=== PATIENT | female | born 1955 | race Caucasian/White ===

== ENCOUNTER 2017-08-07 10:50 | Outpatient (CLI) | payer OTHER ==
--- NOTE | 2017-08-07 13:00 | RAD ---
THREE VIEWS OF THE RIGHT SHOULDER: 08/07/2017 HISTORY: Right shoulder pain. COMPARISON: None. FINDINGS: There is no widening of the AC or CC interspace. There is no displaced fracture or evidence of dislo cation seen. IMPRESSION: No acute findings. POS: [facility]
== END 2017-08-07 10:51 | disposition home or self-care (01) ==
LOC: SCSRAD 10:50
PROVIDERS: ATTEND Nurse Practitioner Family
DX: M25.511 Pain in right shoulder (principal)

== ENCOUNTER 2018-05-02 17:54 | Inpatient (IN) | payer OTHER ==
[2018-05-02 18:49] LABS: #Basophils 0.1 thou/uL (0.0-0.2); #Eosinphils 0.1 thou/uL (0.0-0.7); #Lymphocytes 1.4 thou/uL (1.20-3.40); #Neutrophils 11.5 thou/uL (1.40-6.50); %Basophils 0.6 % (0.0-1.0); %Eosinophils 0.4 % (0.0-10.0); %Monocytes 7.3 % (0.0-10.0); %Neutrophils 81.7 % (42.0-75.0); Hemoglobin 14.7 g/dL (12.0-16.0); Mean Corpuscular HGB CONC 32.9 g/dL (32.0-36.0); Mean Corpuscular Hemoglobin 30.3 pg (27.0-31.0); Mean Platelet Volume 8.6 fL (7.4-10.4); Platelet Count 243 thou/uL (130-400); RBC Distribution Width 13.1 % (11.5-14.5); Red Blood Cell (RBC) Count 4.85 mill/uL (4.20-5.40)
[2018-05-02] MEDS ORDERED: Ondansetron PF 4 MG/2 ML Vial ONE (18:51)
[2018-05-02] MEDS ORDERED: Morphine 4 MG/ML VIAL ONE (18:51)
[2018-05-02 18:58] LABS: Bilirubin Negative (Negative); Blood, Urine Negative (Negative); Clarity CLOUDY (Clear); Glucose, Urine (Dipstick) Negative (Negative); Leukocyte Trace (Negative); Nitrite Negative (Negative); Protein, Urine (Dipstick) Negative (Neg-Trace); Specific Gravity, Urine 1.028 (1.002-1.036); pH, Urine 6.5 (5.0-9.0)
[2018-05-02 19:00] LABS: Bacteria/HPF 2+ HPF (None Seen); Squamous Epithelial 21-50 HPF (0-3)
[2018-05-02 19:09] LABS: Hyaline Casts/LPF 0-3 HYALINE CAST LPF (0-3 Hyaline); Other Casts/LPF None Seen LPF (0-3 Hyaline); RBC/HPF 0-3 HPF (0-3)
[2018-05-02 19:13] LABS: Albumin 4.1 g/dL (3.4-4.8); Anion Gap 11 mmol/L (10-20); BUN (Urea Nitrogen) 15 mg/dL (9.8-20.1); Bilirubin, Total 0.9 mg/dL (0.2-1.2); Calc. Creatinine Clearance 0 mL/min (70-130); Calcium 9.6 mg/dL (7.8-10.44); Carbon Dioxide 28 mmol/L (23-31); Chloride 103 mmol/L (98-107); Estimated GFR-MDRD 70; Globulin 2.8 g/dL (2.4-3.5); Glucose 114 mg/dL (80-115); Potassium 3.5 mmol/L (3.5-5.1); Protein, Total 6.9 g/dL (6.0-8.3); Sodium 138 mmol/L (136-145)
[2018-05-02 19:14] LABS: ALT (SGPT) 14 U/L (8-55); AST (SGOT) 13 U/L (5-34); Alkaline Phosphatase 75 U/L (40-150); Lipase 11 U/L (8-78)
[2018-05-02 19:44] LABS: Bilirubin Small (Negative); Blood, Urine Negative (Negative); Clarity CLEAR (Clear); Glucose, Urine (Dipstick) Negative (Negative); Leukocyte Negative (Negative); Nitrite Negative (Negative); Protein, Urine (Dipstick) Negative (Neg-Trace); Specific Gravity, Urine 1.026 (1.002-1.036); pH, Urine 6.5 (5.0-9.0)
--- NOTE | 2018-05-02 20:26 | CT ---
ABDOMEN AND PELVIC CT SCAN WITH IV CONTRAST: History: 62-year-old female with history of hypertension with right lower quadrant pain, nausea and vomiting. FINDINGS: Mild linear stranding in the right middle lobe and lingula. No significant pleural fluid. Post-operat leatha changes of the stomach with a small hiatal hernia. Status post cholecystectomy. Fatty changes in the pancreas. Spleen, adrenal glands are unremarkable. No renal calculus or acute obstruction. Sca ttered diverticulosis throughout the colon with some focal wall thickening and pericolonic fat strand ing of the sigmoid colon which is somewhat tortuous. This area of diverticulitis is at the level of t he umbilicus. There is an umbilical or periumbilical fat containing hernia with some minimal associat ed fat stranding. No evidence for free intraperitoneal air or overt extraluminal gas. Calcified uteri ne fibroid. No CT evidence for acute appendicitis. No abscess or abnormal fluid collection. IMPRESSION: Focal sigmoid colon diverticulitis. Umbilical or periumbilical fat containing hernia with some associ ated fat stranding. Post op changes of the stomach and status post cholecystectomy. Mild linear stran ding in the right middle lobe and lingula, nonspecific. Calcification in the uterus, evidence for [place] rine fibroid. POS: [facility]
[2018-05-02] MEDS ORDERED: metroNIDAZOLE 500 MG/100 ML BAG ONE (20:33)
[2018-05-02] MEDS ORDERED: Acetaminophen 325 MG TAB PO PRN (21:07)
[2018-05-02] MEDS ORDERED: Ondansetron PF 4 MG/2 ML Vial IVP PRN (21:07)
[2018-05-02] MEDS ORDERED: Ondansetron ODT 4 MG TAB PO PRN (21:07)
[2018-05-02 22:41] VITALS: BMI 51.5
[2018-05-03] MEDS: Sodium Chloride 0.9% 1,000 ML IV SCH ×4 (00:27→16:18)
[2018-05-03] MEDS: metroNIDAZOLE 500 MG in Premix Bag 1 BAG IVPB SCH ×3 (04:22→20:18)
[2018-05-03 05:31] LABS: #Eosinphils 0.1 thou/uL (0.0-0.7); #Lymphocytes 1.5 thou/uL (1.20-3.40); #Monocytes 0.9 thou/uL (0.11-0.59); #Neutrophils 7.8 thou/uL (1.40-6.50); %Basophils 0.2 % (0.0-1.0); %Eosinophils 0.5 % (0.0-10.0); %Lymphocytes 14.9 % (21.0-51.0); %Monocytes 8.5 % (0.0-10.0); %Neutrophils 75.8 % (42.0-75.0); Hemoglobin 12.9 g/dL (12.0-16.0); Mean Corpuscular HGB CONC 32.8 g/dL (32.0-36.0); Mean Corpuscular Hemoglobin 30.5 pg (27.0-31.0); Mean Corpuscular Volume 92.8 fL (78.0-98.0); Platelet Count 218 thou/uL (130-400); RBC Distribution Width 12.9 % (11.5-14.5); Red Blood Cell (RBC) Count 4.23 mill/uL (4.20-5.40); White Blood Cell (WBC) Count 10.3 thou/uL (4.8-10.8)
[2018-05-03 05:46] LABS: Anion Gap 13 mmol/L (10-20); BUN (Urea Nitrogen) 11 mg/dL (9.8-20.1); Calc. Creatinine Clearance 159 mL/min (70-130); Calcium 8.6 mg/dL (7.8-10.44); Carbon Dioxide 23 mmol/L (23-31); Chloride 107 mmol/L (98-107); Estimated GFR-MDRD 80; Glucose 113 mg/dL (80-115); Potassium 4.3 mmol/L (3.5-5.1); Sodium 139 mmol/L (136-145)
--- NOTE | 2018-05-03 07:28 | HP ---
CHIEF COMPLAINT: Abdominal pain. HISTORY OF PRESENT ILLNESS: This is a 62-year-old female with past medical history of hypertension, presenting with abdominal pain, which started prior to the day of admission. The patient stated that the abdominal pain started at the lower quadrants bilaterally, and then, as it progressed and it became worse, pain started to localize at the right lower quadrant. The patient stated that she thought it was appendicitis. So, the patient went to primary care physician's office, concerned for appendicitis, and primary care physician advised the patient to come to the hospital to be evaluated. During the time when the patient was having the pain, the patient stated the pain was 10/10 in severity, and the patient had nausea, but the patient denied any vomiting. The patient states that her abdominal pain is not radiating and is sharp in nature. REVIEW OF SYSTEMS: Positive for abdominal pain, nausea, decreased appetite. Otherwise as documented in the HPI, all other systems were reviewed and are negative. PAST MEDICAL HISTORY: Hypertension. FAMILY HISTORY: Reviewed and noncontributory to this visit. PAST SURGICAL HISTORY: The patient had benign tumor removal; lap band in 2005, removed in 2007; gastric sleeve; cholecystectomy; tubal ligation. PSYCHIATRIC HISTORY: The patient has history of anxiety and depression. SOCIAL HISTORY: Denies alcohol use, denies illicit drug use, and denies any smoking history. ALLERGIES: THE PATIENT IS ALLERGIC TO CODEINE. CURRENT MEDICATIONS: The patient does not take any medications at this time. PHYSICAL EXAMINATION: VITAL SIGNS: Blood pressure is 130/94, pulse of 70, respiratory rate of 18, O2 saturation of 93% on room air. GENERAL: The patient is lying in bed, does not appear to be in any acute distress. The patient stated that she is well, able to speak in full sentences. Alert and oriented x3. HEENT: Normocephalic, atraumatic. Pupils are equally round and reactive to light. Extraocular movements are intact. No scleral icterus. No conjunctival pallor. Mucous membranes are moist. NECK: No JVD. Trachea is midline. Supple. Full range of motion. RESPIRATORY: Lungs are clear to auscultation bilaterally. No wheezing, no rales, no rhonchi are appreciated. CARDIAC: Positive S1 and S2. Regular rate and rhythm. No murmurs, no gallops, no rubs appreciated. ABDOMEN: Soft. Mild tenderness with palpation at the right lower quadrant. Positive rebound tenderness. Positive Rovsing sign. Positive psoas sign. No peritoneal signs. No Isaac sign. EXTREMITIES: The patient does have 5/5 upper extremity strength and 5/5 lower extremity strength. No edema noted at the upper and lower extremities. No deficits noted. The patient does have good pulses of the upper and lower extremities bilaterally. NEUROLOGIC: Cranial nerves 2 through 12 grossly intact. No neurologic deficit noted. SKIN: Warm, dry, and intact. PSYCHIATRIC: Normal affect. DIAGNOSTIC DATA: EKG shows sinus rhythm with a rate of 75. LABORATORY DATA: WBC is 14.0, hemoglobin is 14.7, and platelet is 243. Electrolytes; sodium is 138, potassium is 3.5, chloride is 103, carbon dioxide of 28, BUN is 15, creatinine is 0.83. Urinalysis is negative. IMAGING DATA: Showed CT of the abdomen and pelvis, showed focal sigmoid colon diverticulitis, umbilical or periumbilical fat-containing hernia with some associated fat stranding, postop changes of the stomach and status post cholecystectomy, mid linear stranding in the right middle lobe and lingular, nonspecific calcification in the uterus, evidence for your uterine fibroids. ASSESSMENT AND PLAN: This is a 62-year-old female being admitted for, 1. Abdominal pain secondary to acute diverticulitis. At this point, we have consulted Gastrointestinal. We are going to continue antibiotics. We will continue IV fluids. We will give the patient p.r.n. pain medications. We will give p.r.n. medications for fevers. 2. History of hypertension. We will control the patient's blood pressure accordingly. At this point, the patient's blood pressure is controlled. 3. Deep vein thrombosis and gastrointestinal prophylaxis. Job ID: [id number]
--- NOTE | 2018-05-03 08:47 | PRG ---
DATE OF SERVICE: 05/03/2018 SUBJECTIVE: The patient is seen and examined at bedside. She is doing significantly better. She would like to have her coffee this morning. The pain is almost completely gone. OBJECTIVE: VITAL SIGNS: Blood pressure is 131/83, temperature is 97.7, pulse is 74, respirations 16, and O2 saturation 100% on room air. HEENT: Head is atraumatic and normocephalic. She is obese. Her BMI is 51.6. Eyes are PERRLA. Sclerae are nonicteric. Oral mucosa is moist. NECK: Supple. No lymphadenopathy. LUNGS: Clear. HEART: S1 and S2 are normal. No S3. No S4. No murmur. ABDOMEN: Soft, mildly tender in the right lower quadrant. No guarding. No masses. EXTREMITIES: No clubbing, cyanosis, or edema. NEUROLOGICAL: She is alert and oriented x4. There is no any motor deficits. LABORATORY DATA: Normal CBC. Normal chemistry. IMPRESSION: 1. Acute diverticulitis. 2. Hypertension. 3. Morbid obesity. PLAN: We will start her on clear liquids and advance diet as tolerated. Continue antibiotics, which is Cipro and metronidazole. GI consult is still pending with and if she tolerates her food probably, she will be discharged in the next 24 hours. Job ID: [id number]
[2018-05-03] MEDS: Famotidine/PF 20 mg/2ml Vial SLOW IVP SCH ×2 (09:12→20:18)
[2018-05-03] MEDS: Famotidine 20 MG TAB PO SCH ×2 (09:14→20:18)
[2018-05-03] MEDS: Enoxaparin Sodium 40 MG/0.4 ML SYRINGE SC SCH (09:14)
[2018-05-03] MEDS ORDERED: Lisinopril/Hydrochlorothiazide 20 mg/12.5 mg Tablet PO SCH ×2 (10:00→21:00)
[2018-05-03] MEDS ORDERED: Lisinopril/Hydrochlorothiazide 20/25 mg Tablet PO SCH (10:15)
[2018-05-03] MEDS: Lisinopril/Hydrochlorothiazide 20/25 mg Tablet PO SCH (20:46)
[2018-05-04] MEDS: Sodium Chloride 0.9% 1,000 ML IV SCH (02:00)
--- NOTE | 2018-05-04 02:03 | CON ---
DATE OF CONSULTATION: 05/03/2018 REASON FOR CONSULTATION: Acute diverticulitis. CONSULTING PHYSICIAN: Dr. Jamir Zambrano. HISTORY OF PRESENT ILLNESS: The patient is a 62-year-old female with past medical history of hypertension, presenting with complaints of lower abdominal pain. The patient states that she was in her usual state of health until approximately 24 hours ago when she experienced the acute onset of lower abdominal pain affecting both the right and left lower quadrants. The pain was characterized as a pressure-type pain, nonradiating, constant, was progressively worsening throughout the day, and reached a severity of 7 to 8/10. Over the course of the day, the pain seemed to coalesce within the right lower quadrant and was made worse with increased physical activity, but better with bending over and administration of morphine on admission. With worsening of her abdominal pain, it prompted her to seek healthcare attention, where in the ER, she was given morphine which significantly reduced her pain, but she also had imaging findings consistent with acute diverticulitis. In addition to the increased lower abdominal pain that she was experiencing, she did have a mild increase in substernal chest pain that resolved completely with increased eructation. She also experienced subjective fevers without any chills and no documented fever either at home or on this admission. Otherwise, the patient denies any nausea, vomiting, fevers, chills, dysphagia, odynophagia, or weight loss. Currently, she has not had a bowel movement since the onset of her abdominal pain yesterday, but usually has approximately one solid or semi-solid bowel movement every day. Of note, her last colonoscopy was approximately 10 years ago with diverticulosis noted during that procedure, but no other abnormalities per the patient. REVIEW OF SYSTEMS: A 10-category review of systems was obtained with all responses negative except for the pertinent positives as listed in HPI. PAST MEDICAL HISTORY: Hypertension. PAST SURGICAL HISTORY: Laparoscopic band placement in 2005 and removed in 2007, gastric sleeve surgery, cholecystectomy, and bilateral tubal ligation. FAMILY HISTORY: Denies any GI malignancies. SOCIAL HISTORY: Denies any alcohol, tobacco, or illicit drug use. OUTPATIENT MEDICATIONS: None. ALLERGIES: CODEINE. PHYSICAL EXAMINATION: VITAL SIGNS: Temperature 98, pulse 67, blood pressure 146/91, respiratory rate 18, and saturating 96% on room air. GENERAL: The patient is sitting in a chair at bedside, in no acute distress. Alert and oriented x4. HEENT: Normocephalic, atraumatic. NECK: Supple. No JVD or scleral icterus noted. CARDIOVASCULAR: Regular rate and rhythm with no discernible murmurs, gallops, or rubs. RESPIRATORY: Clear to auscultation bilaterally with no discernible wheezes or rales. ABDOMEN: Hypoactive bowel sounds. Soft, nondistended, mild tenderness to palpation in the suprapubic and right lower quadrant as well as mild tenderness in the left lower quadrant. EXTREMITIES: No cyanosis, clubbing, or edema. LABORATORY DATA: CBC with a white blood cell count of 10.3, hemoglobin 12.9, hematocrit 39.3, and platelets 218. Chemistry with a sodium of 139, potassium 4.3, chloride 107, CO2 of 23, BUN 11, creatinine 0.74, and glucose 113. AST 13, ALT 14, alkaline phosphatase 75, total bilirubin 0.9. CRP 5.19, lipase 11. IMAGING DATA: CT of the abdomen and pelvis obtained on 05/02/2018 showed postoperative change in the stomach consistent with gastric sleeve surgery as well as a small hiatal hernia. Scattered diverticulosis was seen in sigmoid colon with focal wall thickening and fat stranding in the sigmoid colon consistent with diverticulitis. ASSESSMENT: The patient is a 62-year-old female with past medical history of hypertension, presenting with acute uncomplicated diverticulitis. Acute uncomplicated diverticulitis. The patient is presenting with the acute onset of lower abdominal quadrant abdominal pain characterized as a pressure-type pain that progressively worsened over the course of yesterday and reached a severity of 7/10. Upon evaluation in the [place] ER, she was noted to have a mildly elevated white blood cell count as well as imaging consistent with acute uncomplicated diverticulitis. At this point, the more likely diagnosis is sigmoid diverticulitis with referral to pain in the lower abdominal quadrants, although the increase in right lower quadrant abdominal pain is somewhat atypical of sigmoid diverticulitis. However, she has not had a bowel movement over the last 24 to 48 hours, which could then increase intraluminal pressure within the colon and then subsequently generate itself as right-sided abdominal pain. Currently, the patient is doing well, responding well to conservative management with no plans to make any changes at this time. RECOMMENDATIONS: 1. We would continue IV antibiotics including metronidazole and ciprofloxacin as part of treatment for acute uncomplicated diverticulitis. 2. Could advance the patient's diet to clear liquid diet and if tolerating this tomorrow, could potentially advance her to full liquid diet. 3. We would continue to monitor clinically for passing flatus and having a bowel movement. 4. The patient is doing well. She might be able to be discharged as soon as tomorrow with follow up in the GI Clinic as an outpatient for repeat colonoscopy given this episode of diverticulitis. We will continue to follow. Please call with any questions. Job ID: [id number]
[2018-05-04] MEDS: metroNIDAZOLE 500 MG in Premix Bag 1 BAG IVPB SCH ×2 (03:56→12:31)
[2018-05-04] MEDS: Enoxaparin Sodium 40 MG/0.4 ML SYRINGE SC SCH (07:48)
[2018-05-04] MEDS: Famotidine 20 MG TAB PO SCH (07:48)
[2018-05-04] MEDS: Famotidine/PF 20 mg/2ml Vial SLOW IVP SCH (07:49)
[2018-05-04] MEDS ORDERED: Nystatin Powder 15 GM BOT TOP SCH (09:00)
[2018-05-04] MEDS: Lisinopril/Hydrochlorothiazide 20/25 mg Tablet PO SCH ×2 (09:59→10:31)
--- NOTE | 2018-05-04 13:17 | EKG ---
Test Reason : CP Blood Pressure : / mmHG Vent. Rate : 075 BPM Atrial Rate : 075 BPM P-R Int : 192 ms QRS Dur : 096 ms QT Int : 396 ms P-R-T Axes : 029 023 025 degrees QTc Int : 442 ms Normal sinus rhythm Normal ECG Confirmed by IRASMEA MACIEL, CATHERINE ([id number]), metropolitan editor ARTEM WILSON ([id number]) on 05/04/2018 1:17:12 PM Referred By: Confirmed By:CATHERINE VILLALPANDO MD
[2018-05-04 15:57] VITALS: BP 126/82; TEMP 97.6
--- NOTE | 2018-05-05 03:24 | DIS ---
DATE OF ADMISSION: 05/02/2018 DATE OF DISCHARGE: 05/04/2018 PRIMARY CARE PHYSICIAN: Tomasa Sutton MD PRIMARY WAREHOUSE TRAFFIC SUPERVISOR: Dr. Carroll. DISCHARGE DIAGNOSES: Abdominal pain secondary to acute diverticulitis. SECONDARY DISCHARGE DIAGNOSIS: Hypertension. DISCHARGE MEDICATIONS: 1. Metronidazole 500 p.o. t.i.d. for 10 more days. 2. Florastor 250 mg daily for 14 days. 3. Ciprofloxacin 500 mg p.o. b.i.d. for 10 more days. Resume home medications as follows; 1. Paxil 10 mg daily. 2. Lisinopril/hydrochlorothiazide 20/25 one tablet p.o. b.i.d. 3. Bupropion 300 mg daily. IN-HOUSE CONSULTATION: Gastroenterology doctor, Dr. Brett Elena. PROCEDURES DONE IN HOSPITAL: CT scan of the abdomen and pelvis which shows sigmoid colon diverticulitis and umbilical and periumbilical fat containing hernia with some fat stranding. HISTORY OF PRESENTING ILLNESS: Ms. Ramon is a pleasant 62-year-old female, who was admitted yesterday for complaints of abdominal pain. Please see admission H and P for further details. She had a CT scan done in the ER, which showed findings consistent with diverticulitis. She was started on IV fluids and IV antibiotics and was made n.p.o. and GI was consulted. HOSPITAL COURSE: The patient actually had a very unremarkable hospital course. She recovered quickly. She was seen by Dr. Elena from GI department and he agreed with continuation of antibiotics. With improvement in her symptoms: Diet was gradually advanced and as of this morning, she has tolerated a regular diet without any increase in the abdominal pain or any nausea, vomiting. She is eager to go home. She was seen and examined prior to discharge. PHYSICAL EXAMINATION: VITAL SIGNS: This morning include vital signs temperature 97.6, heart rate 83, respirations 14, saturating 96% on room air, and blood pressure 126/82. GENERAL: No acute distress. CHEST: Clear to auscultation bilaterally. CARDIOVASCULAR: Rate and rhythm, regular. ABDOMEN: Soft, nontender, nondistended. LABORATORY DATA: WBC is 10.6 down from 14.0. Serum chemistries unremarkable. Lipase normal. Her urine culture is negative. FOLLOW UP: She is instructed to follow up with Dr. Elena in the outpatient setting as well as with her primary care physician. She verbalized understanding. Prescriptions were provided. TIME SPENT: Total time spent in the discharge 32 minutes. Job ID: [id number]
== END 2018-05-04 16:04 | disposition home or self-care (01) | DRG 392 ==
LOC: ERS 17:54 → T4-A 22:01
PROVIDERS: ADMIT Internal Medicine; ATTEND Internal Medicine
DX: K57.32 Diverticulitis of large intestine without perforation or abscess without bleeding (principal); I10 Essential (primary) hypertension; F41.8 Other specified anxiety disorders; Z88.6 Allergy status to analgesic agent
CPT/HCPCS: 36415; 51701; 74177; 80048; 80053; 81003; 81015; 82550; 83605; 83690; 83880; 84484; 85025; 86140; 87086; 93005; 94760; 96361; 96365; 96375; A4353; J0744; J1650; J1956; J2270; J2405

== ENCOUNTER 2018-07-02 06:57 | Day surgery (SDC) | payer OTHER ==
[2018-07-01 14:11] VITALS: BMI 47.5
--- NOTE | 2018-07-02 10:30 | OP ---
DATE OF PROCEDURE: 07/02/2018 PROCEDURE PERFORMED: Colonoscopy with polypectomy. INDICATION FOR PROCEDURE: Screening for malignant neoplasm of the colon, recent history of diverticulitis. DESCRIPTION OF PROCEDURE: After the risks and benefits of the procedure were explained to the patient including risk of bleeding, infection, perforation, reactions to anesthesia, aspiration and/or pain, informed consent was obtained. The patient was then taken to the endoscopy suite, where deep sedation was administered via propofol and anesthesia support. Once adequate sedation was achieved, a digital rectal examination was performed followed by introduction of the standard colonoscope into the rectum and advanced to the cecum with some technical difficulty due to redundancy of the colon requiring manual abdominal pressure to facilitate passage of the scope. The quality of the prep was fair, but converted to a good prep with aggressive irrigation and suctioning. The patient tolerated the procedure well with no immediate perioperative complications. Upon completion of the procedure, all equipment was removed from the patient and she was transferred to Day Stay in satisfactory condition. COLONOSCOPY FINDINGS: Digital rectal exam, normal. Colon findings: A moderate amount of retained liquid stool was seen throughout the entire colon that initially interfered with visualization of the colonic mucosa, however, with aggressive irrigation with sterile water and suctioning, the prep was converted to a good prep with adequate visualization of the colonic mucosa achieved of the mucosa seen. Normal-appearing mucosa was seen at the ileocecal valve as well as the appendiceal orifice. Normal-appearing mucosa was also seen within the cecum. A 3 mm sessile polyp was seen in the ascending colon and completely removed with cold snare polypectomy. It was retrieved and placed in a specimen jar for evaluation. Otherwise, normal-appearing mucosa was seen in the distal ascending, transverse, and proximal descending colon. Numerous diverticula were seen throughout the distal descending and sigmoid colons with both small and large mouth diverticula seen. There was some mucosal swelling in this region as well, but there was no evidence of colonic stricture/stenosis that significantly impeded the passage of the scope. Normal-appearing mucosa was then seen in the rectum with hypertrophied anal papillae and small internal hemorrhoids seen on rectal retroflexion. IMPRESSION: 1. 3 mm ascending colon polyp, status post cold snare polypectomy. 2. Severe left-sided diverticulosis. 3. Small hypertrophied anal papillae. 4. Small internal hemorrhoids. RECOMMENDATIONS: 1. We will follow up on the biopsy results of the polyp with repeat colonoscopy interval depending on pathology results. 2. We would recommend a higher fiber diet given the presence of left-sided diverticulosis and internal hemorrhoids. 3. We will continue to monitor for any further episodes of diverticulitis. If having recurrent bouts of diverticulitis, she may need to be referred to a surgeon for colon resection, but that is not indicated at this time. 4. Follow up in the GI clinic as needed. Job ID: [id number]
== END 2018-07-02 11:20 | disposition home or self-care (01) ==
LOC: SDC 06:57
PROVIDERS: ATTEND Internal Medicine
PROC: 0DBK8ZX Excision of Ascending Colon, Via Natural or Artificial Opening Endoscopic, Diagnostic (ICD-10-PCS; principal; 2018-07-02)
DX: Z12.11 Encounter for screening for malignant neoplasm of colon (principal); D12.2 Benign neoplasm of ascending colon; K57.30 Diverticulosis of large intestine without perforation or abscess without bleeding; K62.89 Other specified diseases of anus and rectum; K64.8 Other hemorrhoids; K21.9 Gastro-esophageal reflux disease without esophagitis; I10 Essential (primary) hypertension; E11.9 Type 2 diabetes mellitus without complications; F41.9 Anxiety disorder, unspecified; F32.9 Major depressive disorder, single episode, unspecified; Z98.51 Tubal ligation status; Z88.5 Allergy status to narcotic agent; Z79.899 Other long term (current) drug therapy; Z98.890 Other specified postprocedural states
CPT/HCPCS: 88305